=== PATIENT | male | born 2000 | race Caucasian/White ===

== ENCOUNTER 2022-04-12 00:11 | Emergency (ER) | payer BC ==
[~2022-04-12] VITALS: Ht 154.9 cm; Wt 79.5 kg
[2022-04-12 02:54] VITALS: TEMP 100.7
[2022-04-12 03:32] VITALS: BP 126/66; PULSE 68
== END 2022-04-12 03:32 | disposition home or self-care (01) ==
LOC: COL.ER 00:11
DX: U07.1 COVID-19 (principal); R00.0 Tachycardia, unspecified